=== PATIENT | female | born 1940 | race Caucasian/White ===

== ENCOUNTER 2016-11-20 11:02 | Day surgery (SDC) | payer OTHER, BC ==
[~2016-11-20] VITALS: Ht 160 cm; Wt 76.2 kg
[~2016-11-20 11:02] MED LIST: ADVAIR HFA120 INHAL1 IH; BABY ASPIRIN81 M1 PO; BENICAR40 MG PO; CALCIUM 600 +1 EAC4 PO; CEFDINIR300 MG PO; HYZAAR 100-11 TABLET PO; Habitrol,Nicoderm CQ TD; LOVASTATIN10 MG PO; LOVAZA1 GM PO; LOW DOSE ASPIRI81 M2 PO; NEXIUM40 MG PO; OXYCODONE HCL10 MG PO; PLAVIX75 MG PO; PREVACID30 MG PO; PROAIR HFA8.5 GM IH; Proventil,Ventolin H IH; SPIRIVA1 INHALATI IH; SYMBICORT60 INHALAT IH; SYSTANE 0.3-0.1 EACH RIGHT EYE; Singulair PO; TUDORZA PRESS400 MCG IH; TYLENOL REGULA325 MG PO; Vibramycin, Doryx PO; predniSONE PO
[2016-11-20 12:19] VITALS: BP 128/70
[2016-11-20 12:30] LABS: AMYLASE 30 IU/L (1-118); DIRECT BILIRUBIN 0.1 mg/dL (0.0-0.3); TOTAL BILIRUBIN 0.5 MG/DL (0.0-1.0)
[2016-11-20 12:35] LABS: ALKALINE PHOSPHATASE 73 IU/L (3-129); LIPASE 9 U/L (1.0-51.0)
[2016-11-20 15:45] VITALS: BP 147/77
[2016-11-20 16:38] VITALS: BP 150/71
== END 2016-11-20 17:00 | disposition home or self-care (01) ==
LOC: SDC 11:02
PROVIDERS: Surgery
PROC: 0FT44ZZ Resection of Gallbladder, Percutaneous Endoscopic Approach (ICD-10-PCS; principal; 2016-11-20)
DX: K80.10 Calculus of gallbladder with chronic cholecystitis without obstruction (principal); I10 Essential (primary) hypertension; K21.9 Gastro-esophageal reflux disease without esophagitis; J44.9 Chronic obstructive pulmonary disease, unspecified; Z99.81 Dependence on supplemental oxygen; M19.90 Unspecified osteoarthritis, unspecified site; M81.0 Age-related osteoporosis without current pathological fracture
CPT/HCPCS: 80076; 82150; 83690; 88304; J1100; J1170; J1720; J2250; J2405; J2710; J3010